=== PATIENT | female | born 1960 | race African-American/Black ===

== ENCOUNTER 2017-01-13 15:07 | Observation (INO) | payer BC ==
[~2017-01-13] VITALS: Ht 170.2 cm; Wt 100.0 kg
[2017-01-13 15:08] VITALS: BP 119/81; PULSE 83; RESP 17; TEMP 98.4; O2SAT 99
--- NOTE | 2017-01-13 15:38 | PD ---
Physical Exam Time Seen by Provider: 15:36 Narrative 56 y/o female here for evaluation of intermittent dizziness for two days, now with h/a which started today. Vital signs reviewed. Seen at triage desk. Awaiting bed placement. Data Data Last Documented VS Vital Signs Date Time Temp Pulse Resp B/P Pulse Ox O2 Delivery O2 Flow Rate FiO2 01/13/17 15:08 98.4 83 17 119/81 99 MDM Medical Record Reviewed: Yes Supervised Visit with KIKI: Henry Sandoval Jan 13, 2017 15:38
[2017-01-13 20:24] VITALS: BP 156/79; PULSE 73; RESP 16; O2SAT 99
--- NOTE | 2017-01-13 21:07 | PD ---
HPI Chief Complaint: Dizziness Time Seen by Provider: 21:07 Travel History International Travel<30 days: No Contact w/Intl Traveler<30days: No Traveled to known affect area: No History of Present Illness HPI 56-year-old female with history of TIA in the past, migraine, DVT and PE, on Eliquis presents to the emergency department for evaluation of an episodes of dizziness that began intermittently occurring over the last 2 days.. Patient states happened earlier in the month and she "ignored it." She states that this morning it happened again and last approximately 10 minutes. This is a sensation where she feels as though she is going to pass out. She states she sat down and the feeling eventually subsided. She did develop a headache following this and noticed left upper extremity weakness. 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 She continued on with her day and then when her headache got intolerable, she decided to come to the emergency department for further evaluation. Denies any chest pain or tightness. No difficulty breathing. No other focal deficit or weakness. She has no other symptoms to report at this time. PFSH Past Medical History Hx Anticoagulant Therapy: Yes (ELIQUIS) Social History Tobacco Use: No Allergies-Medications (Allergen,Severity, Reaction): Coded Allergies: Nonsteroidal Anti-Inflammatory Agts (Verified Allergy, Unknown, GI BLEEDING, 01/13/17) Nubain (Verified Allergy, Unknown, Swelling, 01/13/17) Robinul (Verified Allergy, Unknown, 01/13/17) Toradol (Verified Allergy, Unknown, 01/13/17) Voltaren (Verified Allergy, Unknown, NV, 01/13/17) Reported Meds & Prescriptions Reported Meds & Active Scripts Active Reported Percocet (Oxycodone-Acetaminophen) 5-325 mg Tab 1-2 Tab PO Q6H PRN Eliquis (Apixaban) 5 Mg Tab 5 Mg PO HS Review of Systems Except as stated in HPI: all other systems reviewed are Neg Physical Exam Narrative GENERAL: Well-nourished female patient, in no acute distress SKIN: Focused skin assessment warm/dry. HEAD: Atraumatic. Normocephalic. EYES: Pupils equal and round. No scleral icterus. No injection or drainage. ENT: No nasal bleeding or discharge. Mucous membranes pink and moist. NECK: Trachea midline. No JVD. CARDIOVASCULAR: Regular rate and rhythm. No murmur appreciated. RESPIRATORY: No accessory muscle use. Clear to auscultation. Breath sounds equal bilaterally. GASTROINTESTINAL: Abdomen soft, non-tender, nondistended. Hepatic and splenic margins not palpable. MUSCULOSKELETAL: No obvious deformities. No clubbing. No cyanosis. No edema. NEUROLOGICAL: Awake and alert. No obvious cranial nerve deficits. There is a noted strength deficit in the left upper and lower extremity when compared to the right. Normal speech. PSYCHIATRIC: Appropriate mood and affect; insight and judgment normal. Data Data Last Documented VS Vital Signs Date Time Temp Pulse Resp B/P Pulse Ox O2 Delivery O2 Flow Rate FiO2 01/13/17 21:41 63 17 100 Room Air 01/13/17 20:24 156/79 01/13/17 15:08 98.4 Orders Electrocardiogram (01/13/17 21:07) Prothrombin Time / Inr (Pt) (01/13/17 21:07) Act Partial Throm Time (Ptt) (01/13/17 21:07) Complete Blood Count With Diff (01/13/17 21:07) Comprehensive Metabolic Panel (01/13/17 21:07) Creatine Kinase (Cpk) (01/13/17 21:07) Troponin I (01/13/17 21:07) Urinalysis - C+S If Indicated (01/13/17 21:07) Ct Brain W/O Iv Contrast(Rout) (01/13/17 21:07) Chest, Single Ap (01/13/17 21:07) Ecg Monitoring (01/13/17 21:07) Iv Access Insert/Monitor (01/13/17 21:07) Oximetry (01/13/17 21:07) Sodium Chloride 0.9% Flush (Ns Flush) (01/13/17 21:15) Cta Brain W Iv Contrast W 3d (01/13/17 21:07) Cta Neck W Iv Contrast W 3d (01/13/17 21:07) Labs Laboratory Tests Test 01/13/17 19:00 Urine Color YELLOW Urine Turbidity CLEAR Urine pH 6.0 Urine Specific [place] 1.023 Urine Protein TRACE mg/dL Urine Glucose (UA) NEG mg/dL Urine Ketones NEG mg/dL Urine Occult Blood NEG Urine Nitrite NEG Urine Bilirubin NEG Urine Urobilinogen LESS THAN 2.0 MG/DL Urine Leukocyte Esterase SMALL Urine RBC LESS THAN 1 /hpf Urine WBC 6 /hpf Urine Squamous Epithelial 3 /hpf Cells Urine Hyaline Casts 1 /lpf Urine Mucus FEW /lpf Microscopic Urinalysis Comment CATH-CULT NOT IND MDM Medical Decision Making Medical Screen Exam Complete: Yes Emergency Medical Condition: Yes Medical Record Reviewed: Yes Differential Diagnosis TIA versus CVA versus elect without abnormality versus hypoglycemia versus migraine headache versus syncope versus near syncope Narrative Course 56-year-old female presents to the emergency department for evaluation of episodes of dizziness, headache, and left upper extremity weakness. This all began this morning, several hours ago. Patient does have noted left upper and lower extremity weakness on physical examination however she is well out of the window for any stroke intervention. CVA workup is initiated. [id number] I am informed by nursing staff lab work has not yet been collected due to inability to gain IV access. 230 I discussed the patient with my attending physician Dr. William. He will assume care at this time. Condition: Stable Anya Hadley Jan 13, 2017 21:07
[2017-01-13] MEDS ORDERED: SODIUM CHLORIDE 0.9% FLUSH 10 ML FLUSH IVF PRN (21:15)
[2017-01-13] MEDS ORDERED: PERC5TAB12 PO (21:28)
[2017-01-13] MEDS ORDERED: APIX5TAB PO (21:28)
--- NOTE | 2017-01-13 21:29 | RADRPT ---
EXAM DATE/TIME: 01/13/2017 21:17 [facility] COMPARISON: No previous studies available for comparison. INDICATIONS : Headache, dizziness MEDICAL HISTORY : Cardiovascular disease. SURGICAL HISTORY : None. ENCOUNTER: Initial ACUITY: 4 - 6 days PAIN SCORE: 0/10 LOCATION: chest FINDINGS: A single view of the chest demonstrates the lungs to be symmetrically aerated without evidence of mas s, infiltrate or effusion. The cardiomediastinal contours are unremarkable. Osseous structures are intact. CONCLUSION: No evidence of acute cardiopulmonary disease. Jeromy Hankins MD on January 13, 2017 at 21:27 Board Certified Radiologist. This report was verified electronically.
[2017-01-13 22:37] LABS: BLOOD, URINE NEG (NEG); GLUCOSE,URINE NEG (NEG); HYALINE CAST, URINE 1 /lpf (RARE); KETONE, URINE NEG (NEG); MUCUS URINE FEW /lpf (OCC); NITRITE,URINE NEG (NEG); SQUAMOUS EPITHELIAL CELL URINE 3 /hpf (0-5); URINE COLOR YELLOW (YELLW/STRAW)
[2017-01-13 22:38] LABS: COMMENT (UR) CATH-CULT NOT IND; CULTURE IF INDICATED CATH CULTURE NOT IND
[2017-01-13 22:59] LABS: AUTOMATED NEUTROPHIL # 1.8 TH/MM3 (1.8-7.7); BASOPHIL % 0.8 % (0.0-2.0); EOSINOPHIL # 0.1 TH/MM3 (0-0.4); EOSINOPHIL % 2.5 % (0.0-4.0); HEMATOCRIT 38.5 % (35.0-46.0); HEMO FLAGS DIFF FINAL; LYMPH % 44.8 % (9.0-44.0); LYMPHOCYTE # 1.7 TH/MM3 (1.0-4.8); MEAN CELL VOLUME 90.6 FL (80.0-100.0); MEAN CORPUSCULAR HEMOGLOBIN 30.2 PG (27.0-34.0); MEAN CORPUSCULAR HGB CONC 33.4 % (32.0-36.0); MONO % 6.5 % (0.0-8.0); NEUT % 45.4 % (16.0-70.0); PLATELET COUNT 293 TH/MM3 (150-450); RED BLOOD COUNT 4.25 MIL/MM3 (4.00-5.30); RED CELL DISTRIBUTION WIDTH 15.5 % (11.6-17.2); WHITE BLOOD COUNT 3.9 TH/MM3 (4.0-11.0)
[2017-01-13] MEDS ORDERED: MORPHINE SULFATE 4 MG/ML INJ IV PUSH ONE (23:00)
[2017-01-13 23:10] LABS: APTT (PATIENT) 25.2 SEC (24.3-30.1); PROTHROMBIN TIME - PATIENT 10.7 SEC (9.8-11.6)
[2017-01-13 23:13] VITALS: BP 160/80; PULSE 81; RESP 18; O2SAT 99
[2017-01-13] MEDS ORDERED: diphenhydrAMINE HCL 50 MG/ML VIAL IV PUSH ONE (23:15)
[2017-01-13 23:20] LABS: ANION GAP 6 MEQ/L (5-15); BICARBONATE 26.7 MEQ/L (21.0-32.0); BLOOD UREA NITROGEN 9 MG/DL (7-18); CHLORIDE 108 MEQ/L (98-107); POTASSIUM 3.4 MEQ/L (3.5-5.1); SODIUM (NA) 141 MEQ/L (136-145)
[2017-01-13 23:25] LABS: ALKALINE PHOSPHATASE 105 U/L (45-117); ALT (GPT) 23 U/L (10-53); AST (GOT) 16 U/L (15-37); GLOMERULAR FILTRATION RATE 90 ML/MIN (>89); TOTAL BILIRUBIN ADULT 0.7 MG/DL (0.2-1.0)
[2017-01-13 23:39] LABS: CREATINE KINASE 86 U/L (26-192)
[2017-01-14] VITALS (8 sets, daily range): BP systolic 108–167; BP diastolic 58–95; PULSE 70–83; RESP 16–18; TEMP 97.3–97.9; O2SAT 95–100
[2017-01-14] MEDS ORDERED: IOHEXOL 350 MG/ML 10 ML VIAL (for RAD DIAG) IV ONE (00:25)
--- NOTE | 2017-01-14 00:34 | RADRPT ---
EXAM DATE/TIME: 01/14/2017 00:20 [facility] COMPARISON: No previous studies available for comparison. INDICATIONS : Cephalgia with dizziness. RADIATION DOSE: 39.73 CTDIvol (mGy) MEDICAL HISTORY : Pancreatitis. Diverticulitis. CVA. Colitis. SURGICAL HISTORY : Appendectomy. Cholecystectomy.Tonsillectomy.Mandible surgery. ENCOUNTER: Initial ACUITY: 2 days PAIN SCALE: 10/10 LOCATION: cranial TECHNIQUE: Multiple contiguous axial images were obtained of the head. Using automated exposure control and adj ustment of the mA and/or kV according to patient size, radiation dose was kept as low as reasonably a chievable to obtain optimal diagnostic quality images. FINDINGS: CEREBRUM: The ventricles are normal for age. No evidence of midline shift, mass lesion, hemorrhage or acute in farction. No extra-axial fluid collections are seen. POSTERIOR FOSSA: The cerebellum and brainstem are intact. The 4th ventricle is midline. The cerebellopontine angle i s unremarkable. EXTRACRANIAL: The visualized portion of the orbits is intact. SKULL: The calvaria is intact. No evidence of skull fracture. Left TMJ arthroplasty CONCLUSION: Normal examination. Bryan Mccauley MD on January 14, 2017 at 0:32 Board Certified Radiologist. This report was verified electronically.
--- NOTE | 2017-01-14 01:20 | RADRPT ---
EXAM DATE/TIME: 01/14/2017 00:20 [facility] COMPARISON: No previous studies available for comparison. INDICATIONS : Cephalgia with dizziness. IV CONTRAST: 100 cc Omnipaque 350 (iohexol) IV ; Cumulative dose for multiple exams. RADIATION DOSE: 28.10 CTDIvol (mGy) ; Combined studies MEDICAL HISTORY : Diverticulitis. Pancreatitis. CVA. Colitis. SURGICAL HISTORY : Appendectomy. Cholecystectomy.Tonsillectomy.Mandible surgery. ENCOUNTER: Initial ACUITY: 2 days PAIN SCALE: 10/10 LOCATION: cranial TECHNIQUE: Volumetric scanning was performed using a multi-row detector CT scanner. The data was post processed with a variety of visualization algorithms including full volume maximum intensity projection, multi -planar sliding thin slab reformation, curved planar reformation, and surface rendering techniques. Using automated exposure control and adjustment of the mA and/or kV according to patient size, radiat ion dose was kept as low as reasonably achievable to obtain optimal diagnostic quality images. FINDINGS: There is excellent visualization of the major intracranial arteries out to the second-order branch ve ssels. There is no evidence for aneurysm, vessel truncation or stenosis, and no evidence for vascula r malformation. CONCLUSION: Normal examination. Bryan Mccauley MD on January 14, 2017 at 1:17 Board Certified Radiologist. This report was verified electronically.
--- NOTE | 2017-01-14 01:22 | RADRPT ---
EXAM DATE/TIME: 01/14/2017 00:20 [facility] COMPARISON: No previous studies available for comparison. INDICATIONS : Cephalgia with dizziness. IV CONTRAST: 100 cc Omnipaque 350 (iohexol) IV ; Cumulative dose for multiple exams. RADIATION DOSE: 28.10 CTDIvol (mGy) ; Combined studies MEDICAL HISTORY : Pancreatitis. Diverticulitis. CVA. Colitis. SURGICAL HISTORY : Appendectomy. Cholecystectomy.Tonsillectomy.Mandible surgery. ENCOUNTER: Initial ACUITY: 2 days PAIN SCALE: 0/10 LOCATION: neck Elevated flow velocities and ICA/CCA ratios have been found to correlate with increased degrees of vessel stenosis, calculated as percentage of diameter relative to a normal segment of distal ICA/CCA. TECHNIQUE: Volumetric scanning was performed using a multirow detector CT scanner. The data was post processed with a variety of visualization algorithms including full-volume maximum intensity projection, multip lanar sliding thin-slab reformation, curved-planar reformation, and surface-rendering techniques. Us ing automated exposure control and adjustment of the mA and/or kV according to patient size, radiatio n dose was kept as low as reasonably achievable to obtain optimal diagnostic quality images. FINDINGS: AORTIC ARCH: There is a three-vessel origin of the great vessels from the aorta. No evidence of ostial narrowing. RIGHT CAROTID: The common carotid artery is intact. The carotid bulb has a normal configuration without ulceration o r narrowing. The internal carotid artery lumen is smooth without stenosis. The external carotid margot ry is intact. LEFT CAROTID: The common carotid artery is intact. The carotid bulb has a normal configuration without ulceration or narrowing. The internal carotid artery lumen is smooth without stenosis. The external carotid ar sherry is intact. VERTEBRALS: The vertebral arteries have a symmetric diameter. No stenotic lesions are seen. CONCLUSION: Normal examination. Bryan Mccauley MD on January 14, 2017 at 1:21 Board Certified Radiologist. This report was verified electronically.
[2017-01-14] MEDS ORDERED: METOCLOPRAMIDE HCL 10 MG/2 ML VIAL IV PUSH ONE (01:30)
[2017-01-14] MEDS ORDERED: MORPHINE SULFATE 4 MG/ML INJ IV PUSH ONE (01:30)
--- NOTE | 2017-01-14 01:38 | PD ---
Data Data Last Documented VS Vital Signs Date Time Temp Pulse Resp B/P Pulse Ox O2 Delivery O2 Flow Rate FiO2 01/13/17 23:13 81 18 160/80 99 Room Air 01/13/17 15:08 98.4 Orders Electrocardiogram (01/13/17 21:07) Prothrombin Time / Inr (Pt) (01/13/17 21:07) Act Partial Throm Time (Ptt) (01/13/17 21:07) Complete Blood Count With Diff (01/13/17 21:07) Comprehensive Metabolic Panel (01/13/17 21:07) Creatine Kinase (Cpk) (01/13/17 21:07) Troponin I (01/13/17 21:07) Urinalysis - C+S If Indicated (01/13/17 21:07) Ct Brain W/O Iv Contrast(Rout) (01/13/17 21:07) Chest, Single Ap (01/13/17 21:07) Ecg Monitoring (01/13/17 21:07) Iv Access Insert/Monitor (01/13/17 21:07) Oximetry (01/13/17 21:07) Sodium Chloride 0.9% Flush (Ns Flush) (01/13/17 21:15) Morphine Inj (Morphine Inj) (01/13/17 23:00) Diphenhydramine Inj (Benadryl Inj) (01/13/17 23:15) Cta Brain W Iv Contrast W 3d (01/14/17 ) Cta Neck W Iv Contrast W 3d (01/14/17 ) Iohexol 350 Inj (Omnipaque 350 Inj) (01/14/17 00:25) Metoclopramide Inj (Reglan Inj) (01/14/17 01:30) Morphine Inj (Morphine Inj) (01/14/17 01:30) Labs Laboratory Tests Test 01/13/17 01/13/17 19:00 22:50 Urine Color YELLOW Urine Turbidity CLEAR Urine pH 6.0 Urine Specific [place] 1.023 Urine Protein TRACE mg/dL Urine Glucose (UA) NEG mg/dL Urine Ketones NEG mg/dL Urine Occult Blood NEG Urine Nitrite NEG Urine Bilirubin NEG Urine Urobilinogen LESS THAN 2.0 MG/DL Urine Leukocyte Esterase SMALL Urine RBC LESS THAN 1 /hpf Urine WBC 6 /hpf Urine Squamous Epithelial 3 /hpf Cells Urine Hyaline Casts 1 /lpf Urine Mucus FEW /lpf Microscopic Urinalysis Comment CATH-CULT NOT IND White Blood Count 3.9 TH/MM3 Red Blood Count 4.25 MIL/MM3 Hemoglobin 12.9 GM/DL Hematocrit 38.5 % Mean Corpuscular Volume 90.6 FL Mean Corpuscular Hemoglobin 30.2 PG Mean Corpuscular Hemoglobin 33.4 % Concent Red Cell Distribution Width 15.5 % Platelet Count 293 TH/MM3 Mean Platelet Volume 8.2 FL Neutrophils (%) (Auto) 45.4 % Lymphocytes (%) (Auto) 44.8 % Monocytes (%) (Auto) 6.5 % Eosinophils (%) (Auto) 2.5 % Basophils (%) (Auto) 0.8 % Neutrophils # (Auto) 1.8 TH/MM3 Lymphocytes # (Auto) 1.7 TH/MM3 Monocytes # (Auto) 0.3 TH/MM3 Eosinophils # (Auto) 0.1 TH/MM3 Basophils # (Auto) 0.0 TH/MM3 CBC Comment DIFF FINAL Differential Comment Prothrombin Time 10.7 SEC Prothromb Time International 1.0 RATIO Ratio Activated Partial 25.2 SEC Thromboplast Time Sodium Level 141 MEQ/L Potassium Level 3.4 MEQ/L Chloride Level 108 MEQ/L Carbon Dioxide Level 26.7 MEQ/L Anion Gap 6 MEQ/L Blood Urea Nitrogen 9 MG/DL Creatinine 0.80 MG/DL Estimat Glomerular Filtration 90 ML/MIN Rate Random Glucose 86 MG/DL Calcium Level 8.9 MG/DL Total Bilirubin 0.7 MG/DL Aspartate Amino Transf 16 U/L (AST/SGOT) Alanine Aminotransferase 23 U/L (ALT/SGPT) Alkaline Phosphatase 105 U/L Total Creatine Kinase 86 U/L Troponin I LESS THAN 0.02 NG/ML Total Protein 8.0 GM/DL Albumin 3.8 GM/DL [facility] Supervised Visit with KIKI: Yes Narrative Course I, Dr. Willima, have reviewed the advance practice practitioner's documentation and am in agreement, met with the patient face to face, made the diagnosis, and the medical decision making was done by me. See her note for further details. Briefly this a 56-year-old female with history of TIAs, migraines, DVT/PE on Eliquis, here for evaluation of headache, dizziness, and left sided weakness. Symptoms started 2 days ago with dizziness/lightheadedness and continued to today. Earlier this morning the patient noticed tingling and weakness in her left arm and left leg. 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 Normal strength on the right. EKG shows sinus bradycardia with no signs of ischemia. Initial vital signs show heart rate 83, blood pressure 119/81, pulse ox 99% on room air, oral temp of 98.4F. CBC is essentially unremarkable. CMP is unremarkable. Cardiac enzymes are negative. UA is not suggestive of UTI. CT head read as normal exam. Chest x-ray read as no evidence of acute cardio pulmonary disease. CTA brain read as normal exam. CTA neck read as normal exam. Patient was made aware of all findings. She is still complaining of headache, however it has somewhat improved after receiving morphine. She has history of migraines and has had similar headaches in the past. This is not the worst headache of her life. She is overall comfortable and no nuchal rigidity on exam. I do not believe she has a subarachnoid hemorrhage/meningitis or encephalitis. CTA of the head was performed to look for possible aneurysm. Patient still has weakness in her left arm and left leg when compared to the right. She has history of TIAs as well as SVC syndrome, DVT, and PE. She is on eliquis. She will be admitted for further CVA workup. Case discussed with hospitalist Dr. Kelly who will admit the patient to his service. Diagnosis Primary Impression: Left-sided weakness Additional Impression: Headache Qualified Code: R51 - Intractable headache, unspecified chronicity pattern, unspecified headache type Condition: Stable Evaristo William MD Jan 14, 2017 01:38 Evaristo William MD Jan 14, 2017 01:38
[2017-01-14] MEDS ORDERED: ONDANSETRON HCL 4 MG/2 ML VIAL IVP PRN (03:00)
[2017-01-14] MEDS ORDERED: ACETAMINOPHEN 325 MG TAB PO PRN ×2 (03:00)
[2017-01-14] MEDS ORDERED: NALOXONE HCL 0.4 MG/ML AMP IV PRN (03:00)
[2017-01-14] MEDS ORDERED: MAGNESIUM HYDROXIDE SUSP 30 ML CUP PO PRN (03:00)
[2017-01-14] MEDS ORDERED: SODIUM CHLORIDE 0.9% FLUSH 10 ML FLUSH IV FLUSH PRN (03:00)
[2017-01-14] MEDS ORDERED: diphenhydrAMINE HCL 50 MG/ML VIAL IM PRN (05:45)
[2017-01-14] MEDS ORDERED: HEPARIN SODIUM - SQ 10,000 UNITS/ML VIAL SQ SCH ×2 (06:00→06:30)
[2017-01-14] MEDS ORDERED: LABETALOL HCL 100 MG/20 ML VIAL IV PRN (06:30)
[2017-01-14] MEDS ORDERED: POTASSIUM CHLORIDE 20 MEQ CONTROLLED RELEASE TAB PO ONE ×2 (06:30→09:30)
[2017-01-14] MEDS ORDERED: ENALAPRILAT 1.25 MG/ML VIAL IV PRN (06:30)
[2017-01-14] MEDS ORDERED: DEXTROSE 50% IN WATER 50 ML VIAL(D50) IV PUSH PRN (06:45)
[2017-01-14] MEDS ORDERED: GLUCAGON 1 MG/ML VIAL OTHER PRN (06:45)
[2017-01-14] MEDS: SODIUM CHLOR 0.9% 1000 ML INJ 1,000 ML IV SCH (06:46)
[2017-01-14] MEDS: MORPHINE SULFATE 4 MG/ML INJ IV PUSH PRN ×3 (06:55→18:36)
[2017-01-14] MEDS: INSULIN ASPART SUPPLEMENTAL SCALE SQ SCH ×4 (06:57→20:38)
--- NOTE | 2017-01-14 08:40 | HHI.HP ---
[facility] Primary Care Physician No Primary Care Physician Admission Diagnosis left-sided weakness, headache Diagnoses: Chief Complaint: left sided weakness, dizziness and headaches Travel History International Travel<30 Days: No Contact w/Intl Traveler <30 Da: No Traveled to Known Affected Are: No History of Present Illness Written by BRIDGET Deshpande acting as scribe for Dr. Millan] on 01/14/17 at 08: 50. 56 y/o female with a history of TIA, CAD, migraines, DVT, and PE presents to the ED with complaints of dizziness, left sided weakness, and headaches. She states symptoms began Friday; she was standing in kitchen felt very dizzy and she felt like she was going to pass out so she went and laid down. Friday she continued to have intermittent symptoms, and then on Friday she started to have left sided weakness. She also gets associated headaches with the dizziness. She denies any numbness to left side, states it just feels dull on the whole side with decreased sensation. Denies any chest pain, sob, fever or chills. Review of Systems Constitutional: COMPLAINS OF: Dizziness, DENIES: Fever, Chills Respiratory: DENIES: Cough, Sputum production, Shortness of breath Cardiovascular: DENIES: Chest pain, Lower Extremity Edema Gastrointestinal: DENIES: Constipation, Diarrhea, Nausea, Vomiting Genitourinary: DENIES: Hematuria, Dysuria Musculoskeletal: DENIES: Back pain, Neck pain Integumentary: DENIES: Rash Hematologic/lymphatic: DENIES: Lymphadenopathy Neurologic: COMPLAINS OF: Headache, Localized weakness Past Family Social History Past Medical History TIA Migraines DVT PE Severe vena cava syndrome Kidney stones Diverticulitis Past Surgical History TMJ joint replacement venoplasty I&D shoulder wound Hernia repair Lithotripsy Left knee replacement Back surgery Cholecystectomy Reported Medications Reported Meds & Active Scripts Active Reported Percocet (Oxycodone-Acetaminophen) 5-325 mg Tab 1-2 Tab PO Q6H PRN Eliquis (Apixaban) 5 Mg Tab 5 Mg PO HS Allergies: Coded Allergies: Nonsteroidal Anti-Inflammatory Agts (Verified Allergy, Unknown, GI BLEEDING, 01/13/17) Nubain (Verified Allergy, Unknown, Swelling, 01/13/17) Robinul (Verified Allergy, Unknown, 01/13/17) Toradol (Verified Allergy, Unknown, 01/13/17) Voltaren (Verified Allergy, Unknown, NV, 01/13/17) Active Ordered Medications Current Medications Medications (Trade) Dose Ordered Sig/Coy Route Start Time Stop Time Status Last Admin (NS Flush) 2 ml UNSCH PRN IV FLUSH 01/14/17 03:00 (NS Flush) 2 ml BID IV FLUSH 01/14/17 09:00 (Tylenol) 650 mg Q4H PRN PO 01/14/17 03:00 (Zofran Inj) 4 mg Q6H PRN IVP 01/14/17 03:00 (Tylenol) 650 mg Q6H PRN PO 01/14/17 03:00 (Narcan Inj) 0.4 mg UNSCH PRN IV 01/14/17 03:00 (Marlene-Colace) 1 tab BID PO 01/14/17 09:00 (Milk Of Magnesia Liq) 30 ml Q12H PRN PO 01/14/17 03:00 (Morphine Inj) 4 mg Q4H PRN IV PUSH 01/14/17 05:45 01/14/17 06:55 (Morphine Inj) 2 mg Q4H PRN IV PUSH 01/14/17 05:45 Diphenhydramine HCl 25 mg 25 mg Q6H PRN IM 01/14/17 05:45 01/14/17 17:46 01/14/17 06:54 (NS 1000 ml Inj) 1,000 ml @ 70 mls/hr [id number] IV 01/14/17 06:21 01/14/17 06:46 (Vasotec Inj) 1.25 mg Q4H PRN IV 01/14/17 06:30 (Trandate Inj) 10 mg Q2H PRN IV 01/14/17 06:30 (Aspirin Chew) 162 mg DAILY PO 01/14/17 09:00 (NovoLOG SUPPLEMENTAL SCALE) 1 ACHS SQ 01/14/17 07:00 (Eliquis) 5 mg BID PO 01/14/17 09:00 (D50w (Vial) Inj) 25 ml UNSCH PRN IV PUSH 01/14/17 06:45 (Glucagon Inj) 1 mg UNSCH PRN OTHER 01/14/17 06:45 Family History Dad: COPD Mom: HTN, MS Social History Tobacco use: denies Alcohol use: occasionally Illicit drug use: denies Physical Exam Vital Signs Vital Signs Date Time Temp Pulse Resp B/P Pulse Ox O2 Delivery O2 Flow Rate FiO2 01/14/17 07:59 97.9 70 18 123/61 98 01/14/17 05:07 83 19 115/68 100 01/14/17 02:02 74 16 167/95 98 Room Air 01/13/17 23:13 81 18 160/80 99 Room Air 01/13/17 21:41 63 17 100 Room Air 01/13/17 20:24 73 16 156/79 99 Room Air 01/13/17 15:08 98.4 83 17 119/81 99 Physical Exam GENERAL: This is a well-nourished, well-developed patient, in no apparent distress. SKIN: No rashes, ecchymoses or lesions. Cool and dry. HEAD: Atraumatic. Normocephalic. No temporal or scalp tenderness. EYES: Pupils equal round and reactive. Extraocular motions intact. No scleral icterus. No injection or drainage. ENT: Nose without bleeding, purulent drainage or septal hematoma. Tongue midline. Airway patent. NECK: Trachea midline. No JVD or lymphadenopathy. Supple, nontender, no meningeal signs. CARDIOVASCULAR: Regular rate and rhythm without murmurs, gallops, or rubs. RESPIRATORY: Clear to auscultation. Breath sounds equal bilaterally. No wheezes , rales, or rhonchi. GASTROINTESTINAL: Abdomen soft, non-tender, nondistended. No hepato-splenomegaly , or palpable masses. No guarding. MUSCULOSKELETAL: Extremities without clubbing, cyanosis, or edema. No joint tenderness, effusion, or edema noted. No calf tenderness. NEUROLOGICAL: Awake and alert. Cranial nerves II through XII intact. Motor and sensory grossly within normal limits. 4 out of 5 muscle strength in LUE and LLE. Decreased sensation on left side. Normal speech. Laboratory Laboratory Tests Test 01/13/17 01/13/17 19:00 22:50 Urine Color YELLOW Urine Turbidity CLEAR Urine pH 6.0 Urine Specific [place] 1.023 Urine Protein TRACE Urine Glucose (UA) NEG Urine Ketones NEG Urine Occult Blood NEG Urine Nitrite NEG Urine Bilirubin NEG Urine Urobilinogen LESS THAN 2.0 Urine Leukocyte Esterase SMALL Urine RBC LESS THAN 1 Urine WBC 6 Urine Squamous Epithelial 3 Cells Urine Hyaline Casts 1 Urine Mucus FEW Microscopic Urinalysis Comment CATH-CULT NOT IND White Blood Count 3.9 Red Blood Count 4.25 Hemoglobin 12.9 Hematocrit 38.5 Mean Corpuscular Volume 90.6 Mean Corpuscular Hemoglobin 30.2 Mean Corpuscular Hemoglobin 33.4 Concent Red Cell Distribution Width 15.5 Platelet Count 293 Mean Platelet Volume 8.2 Neutrophils (%) (Auto) 45.4 Lymphocytes (%) (Auto) 44.8 Monocytes (%) (Auto) 6.5 Eosinophils (%) (Auto) 2.5 Basophils (%) (Auto) 0.8 Neutrophils # (Auto) 1.8 Lymphocytes # (Auto) 1.7 Monocytes # (Auto) 0.3 Eosinophils # (Auto) 0.1 Basophils # (Auto) 0.0 CBC Comment DIFF FINAL Differential Comment Prothrombin Time 10.7 Prothromb Time International 1.0 Ratio Activated Partial 25.2 Thromboplast Time Sodium Level 141 Potassium Level 3.4 Chloride Level 108 Carbon Dioxide Level 26.7 Anion Gap 6 Blood Urea Nitrogen 9 Creatinine 0.80 Estimat Glomerular Filtration 90 Rate Random Glucose 86 Calcium Level 8.9 Total Bilirubin 0.7 Aspartate Amino Transf 16 (AST/SGOT) Alanine Aminotransferase 23 (ALT/SGPT) Alkaline Phosphatase 105 Total Creatine Kinase 86 Troponin I LESS THAN 0.02 Total Protein 8.0 Albumin 3.8 Result Diagram: 01/13/17224901/13/17 225 Imaging Last Impressions Neck CTA 01/14/17 0000 Signed Impressions: Service Date/Time: Saturday, January 14, 2017 00:20 - CONCLUSION: Normal examination. Bryan Mccauley MD Head CTA 01/14/17 0000 Signed Impressions: Service Date/Time: Saturday, January 14, 2017 00:20 - CONCLUSION: Normal examination. Bryan Mccauley MD Head CT 01/13/172106 Signed Impressions: Service Date/Time: Saturday, January 14, 2017 00:20 - CONCLUSION: Normal examination. Bryan Mccauley MD Chest X-Ray 6/5/17 2107 Signed Impressions: Service Date/Time: Friday, January 13, 2017 21:17 - CONCLUSION: No evidence of acute cardiopulmonary disease. Jeromy Hankins MD Assessment and Plan Problem List: (1) TIA (transient ischemic attack) ICD Code: G45.9 Status: Acute (2) Left-sided weakness ICD Code: R53.1 Status: Acute (3) Headache ICD Code: R51 Status: Acute Assessment and Plan 56 y/o female with a history of TIA, CAD, migraines, DVT, and PE presents to the ED with complaints of dizziness, left sided weakness, and headaches. TIA, r/o cva, Left sided weakness, pt with a history of TIA, on eliquis for the last year due to PE Images: Head CT, head CTA and neck CTA unremarkable -Brain MRI ordered -Consult neuro for recommendations -Neuro checks, NIH scale -PT/OT/ST -Echo/Holter monitor pending -Allow for permissive HTN Hypokalemia, potassium 3.4 -replacement given, trend bmp CAD, hx of PE -Hold eliquis for now, r/o cva DVT prophylaxis: SCDs This note was transcribed by scribe [Sabine Balbuena]. I, Dr. Franck Ny personally performed the history, physical exam, and medical decision making; and confirmed the accuracy of the information in the transcribed note. Authenticated by Dr. Franck Ny on 01/14/17 at 13:54. Discussed Condition With Patient and RN Problem Qualifiers (1) Headache: Qualified Code: R51 - Intractable headache, unspecified chronicity pattern, unspecified headache type Sabine Balbuena Jan 14, 2017 08:39 Franck Ny MD Jan 14, 2017 13:54
[2017-01-14] MEDS: DOCUSATE SODIUM 50 MG/SENNA 8.6 MG TAB PO SCH ×2 (09:13→20:37)
[2017-01-14] MEDS: SODIUM CHLORIDE 0.9% FLUSH 10 ML FLUSH IV FLUSH SCH ×2 (09:13→20:00)
[2017-01-14] MEDS: ASPIRIN 81 MG CHEW TAB PO SCH (09:13)
[2017-01-14 09:15] LABS: PROTHROMBIN TIME - PATIENT 10.7 SEC (9.8-11.6)
[2017-01-14] MEDS ORDERED: LORazepam 2 MG/ML VIAL IV PUSH ONE (09:15)
[2017-01-14 09:46] LABS: CREATINE KINASE 98 U/L (26-192)
--- NOTE | 2017-01-14 11:55 | RADRPT ---
EXAM DATE/TIME: 01/14/2017 11:18 [facility] COMPARISON: No previous studies available for comparison. INDICATIONS : Left sided weakness. Vertigo. CVA. MEDICAL HISTORY : Cerebrovascular disease. Diverticulitis. Pancreatitis. SURGICAL HISTORY : Tonsillectomy. Appendectomy. Hysterectomy. TMJ. Hernia. Left knee replacement. ENCOUNTER: Subsequent ACUITY: 2 day PAIN SCORE: 0/10 LOCATION: head. TECHNIQUE: Multiplanar, multisequence MRI of the brain was performed without contrast. FINDINGS: CEREBRUM: The ventricles are normal for age. No evidence of midline shift, mass lesion, hemorrhage or acute in farction. No extraaxial fluid collections are seen. The pituitary gland and suprasellar cistern are normal in configuration. WHITE MATTER: No significant signal abnormalities are seen in the white matter. POSTERIOR FOSSA: The cerebellum and brainstem are intact. The 4th ventricle is midline. The cerebellopontine angle is unremarkable. The cerebellar tonsils are normal in position. DIFFUSION IMAGING: No focal areas of restricted diffusion are seen. No evidence of acute infarction. EXTRACRANIAL: The visualized portions of the orbits and paranasal sinuses are unremarkable. CONCLUSION: 1. Negative examination. Franck Mccracken MD on January 14, 2017 at 11:51 Board Certified Radiologist. This report was verified electronically.
[2017-01-14 12:24] LABS: CREATINE KINASE 84 U/L (26-192)
[2017-01-14] MEDS: diphenhydrAMINE HCL 50 MG/ML VIAL IV PRN ×2 (12:41→18:36)
--- NOTE | 2017-01-14 16:07 | PD.CONS ---
History of Present Illness Service Neurology Consult Requested By er Reason for Consult stroke Primary Care Physician No Primary Care Physician History of Present Illness 56 y/o f with history of TIA in the past, migraine, DVT and PE, on Eliquis presents to the emergency department for evaluation of an episodes of dizziness that began intermittently occurring over the last 2 days at school. She states she felt lightheaded as if she was going to pass out. She is studying for her masters. Denies any chest pain or tightness. No difficulty breathing. No other focal deficit or weakness. no vision loss, no vertigo, no sensory changes. no dunlap. feels well at present. she states someone in er thought she had left sided weakness and decided to admit her. mri brain nml cta brain/carotids nml [facility] Past Medical History Hx Anticoagulant Therapy: Yes (ELIQUIS) Social History Tobacco Use: No Allergies-Medications (Allergen,Severity, Reaction): Coded Allergies: Nonsteroidal Anti-Inflammatory Agts (Verified Allergy, Unknown, GI BLEEDING, 01/13/17) Nubain (Verified Allergy, Unknown, Swelling, 01/13/17) Robinul (Verified Allergy, Unknown, 01/13/17) Toradol (Verified Allergy, Unknown, 01/13/17) Voltaren (Verified Allergy, Unknown, NV, 01/13/17) Reported Meds & Prescriptions Reported Meds & Active Scripts Active Reported Percocet (Oxycodone-Acetaminophen) 5-325 mg Tab 1-2 Tab PO Q6H PRN Eliquis (Apixaban) 5 Mg Tab 5 Mg PO HS Review of Systems Except as stated in HPI: all other systems reviewed are Neg Review of Systems All other ROS: ROS reviewed as documented in chart Past Family Social History Allergies: Coded Allergies: Nonsteroidal Anti-Inflammatory Agts (Verified Allergy, Unknown, GI BLEEDING, 01/13/17) Nubain (Verified Allergy, Unknown, Swelling, 01/13/17) Robinul (Verified Allergy, Unknown, 01/13/17) Toradol (Verified Allergy, Unknown, 01/13/17) Voltaren (Verified Allergy, Unknown, NV, 01/13/17) Active Ordered Medications Current Medications Medications (Trade) Dose Ordered Sig/Coy Route Start Time Stop Time Status Last Admin (NS Flush) 2 ml UNSCH PRN IV FLUSH 01/14/17 03:00 (NS Flush) 2 ml BID IV FLUSH 01/14/17 09:00 01/14/17 09:13 (Tylenol) 650 mg Q4H PRN PO 01/14/17 03:00 (Zofran Inj) 4 mg Q6H PRN IVP 01/14/17 03:00 (Tylenol) 650 mg Q6H PRN PO 01/14/17 03:00 (Narcan Inj) 0.4 mg UNSCH PRN IV 01/14/17 03:00 (Marlene-Colace) 1 tab BID PO 01/14/17 09:00 01/14/17 09:13 (Milk Of Kali Lishankar) 30 ml Q12H PRN PO 01/14/17 03:00 (Morphine Inj) 4 mg Q4H PRN IV PUSH 01/14/17 05:45 01/14/17 12:41 Morphine Sulfate 2 mg 2 mg Q4H PRN IV PUSH 01/14/17 05:45 (NS 1000 ml Inj) 1,000 ml @ 70 mls/hr [id number] IV 01/14/17 06:21 01/14/17 06:46 (Vasotec Inj) 1.25 mg Q4H PRN IV 01/14/17 06:30 (Trandate Inj) 10 mg Q2H PRN IV 01/14/17 06:30 (Aspirin Chew) 162 mg DAILY PO 01/14/17 09:00 01/14/17 09:13 (NovoLOG SUPPLEMENTAL SCALE) 1 ACHS SQ 01/14/17 07:00 (Eliquis) 5 mg BID PO 01/14/17 09:00 Hold (D50w (Vial) Inj) 25 ml UNSCH PRN IV PUSH 01/14/17 06:45 (Glucagon Inj) 1 mg UNSCH PRN OTHER 01/14/17 06:45 (Benadryl Inj) 25 mg Q6H PRN IV 01/14/17 11:45 01/14/17 12:41 Exam I&O / VS Vital Signs Date Time Temp Pulse Resp B/P Pulse Ox O2 Delivery O2 Flow Rate FiO2 01/14/17 15:52 97.4 78 18 115/65 95 01/14/17 12:46 97.3 77 18 129/75 100 01/14/17 07:59 97.9 70 18 123/61 98 01/14/17 05:07 83 19 115/68 100 01/14/17 02:02 74 16 167/95 98 Room Air 01/13/17 23:13 81 18 160/80 99 Room Air 01/13/17 21:41 63 17 100 Room Air 01/13/17 20:24 73 16 156/79 99 Room Air General: Alert and Oriented Eye: EOMI Respiratory: Non-labored respirations Neurologic: Alert, Oriented, Normal sensory, Normal motor, No focal defects, CN II-XII intact, Normal DTR's Psychiatric: Cooperative, Appropriate mood & affect, Normal judgement, Non- suicidal Exam Comments was on her cell phone when i arrived to speak to her, no aphasia, neck supple, follows, no deficit noted Review/Management Diagnosis/Plan: (1) Dizziness Plan: presyncopal symptoms possibly 2/2 dehydration/vasovagal/complex migraine- but no dunlap recs ok to d/c home from neuro resume home meds f/u with pcp stay hydrated Mark Escoto MD Jan 14, 2017 16:06
[2017-01-14 20:58] LABS: CREATINE KINASE 69 U/L (26-192)
--- NOTE | 2017-01-14 21:21 | EKG ---
Date Performed: 01/13/2017 Time Performed: 21:37:26 PTAGE: 56 years EKG: SINUS BRADYCARDIA BORDERLINE ECG NO PREVIOUS TRACING DOCTOR: Pastor Roe Interpretating Date/Time 01/14/2017 21:15:18
[2017-01-14 22:23] LABS: HEMOGLOBIN A1a 1.2 %; HEMOGLOBIN A1b 0.9 %; HEMOGLOBIN Ao 84.3 %; HEMOGLOBIN F 1.3 %; HEMOGLOBIN P3 3.5 %
[2017-01-15] VITALS (8 sets, daily range): BP systolic 110–125; BP diastolic 64–82; PULSE 66–89; RESP 18–20; TEMP 96.9–98.6; O2SAT 96–98
[2017-01-15] MEDS: MORPHINE SULFATE 4 MG/ML INJ IV PUSH PRN ×4 (01:24→13:11)
[2017-01-15] MEDS: diphenhydrAMINE HCL 50 MG/ML VIAL IV PRN ×3 (05:53→15:31)
[2017-01-15] MEDS: INSULIN ASPART SUPPLEMENTAL SCALE SQ SCH ×2 (07:00→20:52)
--- NOTE | 2017-01-15 08:56 | HHI.PR ---
Subjective Remarks Follow up left sided weakness. 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 She complains of pain 6/1o in her left upper extremity and lower, no associated nausea. She has had venoplasty in her right upper arm and feels a tightening sensation like she had before she went for the procedure. She is concerned it may be blocked again. Denies any chest pain, sob, fever or chills. Objective Vitals Vital Signs Date Time Temp Pulse Resp B/P Pulse Ox O2 Delivery O2 Flow Rate FiO2 01/15/17 07:24 97.8 73 19 110/77 98 01/15/17 04:41 96.9 76 18 120/71 97 01/15/17 01:29 18 01/15/17 00:39 97.3 77 20 121/82 96 01/14/17 20:20 96 01/14/17 20:06 97.4 83 18 108/58 95 01/14/17 16:54 78 01/14/17 15:52 97.4 78 18 115/65 95 01/14/17 12:46 97.3 77 18 129/75 100 I/O 01/14/17 01/14/17 01/14/17 01/15/17 01/15/17 01/15/17 07:00 15:00 23:00 07:00 15:00 23:00 Intake Total 720 ml Balance 720 ml Intake Oral 720 ml # Voids 3 Result Diagram: 01/13/17224901/13/170 Objective Remarks GENERAL: This is a well-nourished, well-developed patient, in no apparent distress. SKIN: No rashes, ecchymoses or lesions. Cool and dry. HEAD: Atraumatic. Normocephalic. No temporal or scalp tenderness. NECK: Trachea midline. No JVD or lymphadenopathy. Supple, nontender, no meningeal signs. CARDIOVASCULAR: Regular rate and rhythm without murmurs, gallops, or rubs. RESPIRATORY: Clear to auscultation. Breath sounds equal bilaterally. No wheezes , rales, or rhonchi. GASTROINTESTINAL: Abdomen soft, non-tender, nondistended. No hepato-splenomegaly , or palpable masses. No guarding. MUSCULOSKELETAL: Extremities without clubbing, cyanosis, or edema. No joint tenderness, effusion, or edema noted. No calf tenderness. NEUROLOGICAL: Awake and alert. Cranial nerves II through XII intact. Motor and sensory grossly within normal limits. 4 out of 5 muscle strength in LUE and LLE. Decreased sensation on left side. Normal speech. Medications and IVs Current Medications Medications (Trade) Dose Ordered Sig/Coy Route Start Time Stop Time Status Last Admin (NS Flush) 2 ml UNSCH PRN IV FLUSH 01/14/17 03:00 (NS Flush) 2 ml BID IV FLUSH 01/14/17 09:00 01/14/17 09:13 (Tylenol) 650 mg Q4H PRN PO 01/14/17 03:00 (Zofran Inj) 4 mg Q6H PRN IVP 01/14/17 03:00 (Tylenol) 650 mg Q6H PRN PO 01/14/17 03:00 (Narcan Inj) 0.4 mg UNSCH PRN IV 01/14/17 03:00 (Marlene-Colace) 1 tab BID PO 01/14/17 09:00 01/14/17 20:37 (Milk Of Magnphilippe Liq) 30 ml Q12H PRN PO 01/14/17 03:00 Morphine Sulfate 2 mg 2 mg Q4H PRN IV PUSH 01/14/17 05:45 (NS 1000 ml Inj) 1,000 ml @ 70 mls/hr [id number] IV 01/14/17 06:21 01/14/17 06:46 (Vasotec Inj) 1.25 mg Q4H PRN IV 01/14/17 06:30 (Trandate Inj) 10 mg Q2H PRN IV 01/14/17 06:30 (Aspirin Chew) 162 mg DAILY PO 01/14/17 09:00 01/14/17 09:13 (NovoLOG SUPPLEMENTAL SCALE) 1 ACHS SQ 01/14/17 07:00 (Eliquis) 5 mg BID PO 01/14/17 09:00 Hold (D50w (Vial) Inj) 25 ml UNSCH PRN IV PUSH 01/14/17 06:45 (Glucagon Inj) 1 mg UNSCH PRN OTHER 01/14/17 06:45 (Benadryl Inj) 25 mg Q6H PRN IV 01/14/17 11:45 01/15/17 05:53 (Percocet 5-325 Mg) 1 tab Q4H PRN PO 01/15/17 08:45 UNV A/P Problem List: (1) TIA (transient ischemic attack) ICD Code: G45.9 Status: Acute (2) Left-sided weakness ICD Code: R53.1 Status: Acute (3) Headache ICD Code: R51 Status: Acute Assessment and Plan 56 y/o female with a history of TIA, CAD, migraines, DVT, and PE presents to the ED with complaints of dizziness, left sided weakness, and headaches. TIA, r/o cva, Left sided weakness, pt with a history of TIA, on eliquis for the last year due to PE Images: Head CT, head CTA and neck CTA unremarkable -Brain MRI ordered, unremarkable -Consult neuro for recommendations, Dr Escoto recommends follow up with pcp , stay hydrated and dc from neuro standpoint -Cont Neuro checks, NIH scale -PT/OT/ST, pt does not want to go to rehab, but will agree to home health -Echo pending/Holter on and recording Hypokalemia, potassium 3.4, resolved to 3.9 -replacement given, trend bmp CAD, hx of PE -resume eliquis Venoplasty, history, patient is concerned it may be blocked due to a pulling pain. -Doppler rt us ordered, unremarkable, patient made aware HLD, acute cholesterol 237, ldl 149 -Start patient on Lipitor 10 mg HS -Instructed patient on eating better, exercising and lifestyle changes. DVT prophylaxis: SCDs 18:28 hrs: Echo results returned showed normal systolic function, EF 55%, Cholesterol 237, LDL 149, will start patient on Lipitor 10mg hs and will need to follow up with pcp Discharge patient to home with C Condition on discharge: stable Heart Healthy Diet as tolerated Ad Philomena activity Rx written: Lipitor 10mg HS Follow-up with primary care physician, and neurology Patient will have HHC with PT and OT, patient did not want to go to rehab Discussed with patient the results of the echo, new medications and plan of care. Patient is stable for discharge and verbalizes understanding of follow up appointments and medications. Discharge Planning pending echo, hhc set up and doppler us Problem Qualifiers (1) Headache: Qualified Code: R51 - Intractable headache, unspecified chronicity pattern, unspecified headache type Sabine Balbuena Jan 15, 2017 08:56
--- NOTE | 2017-01-15 08:58 | HHI.FF ---
Face to Face Verification Diagnosis: (1) TIA (transient ischemic attack) (2) Headache (3) Left-sided weakness (4) Dizziness Physical Therapy Order: Evaluate and Treat, Improve ambulation, Strength and gait training Occupational Therapy Order: Evaluate and Treat, Improve ADL, Gross motor coordination, Fine motor coordination Home Health Nursing Order: Medical education Signs/symptoms of disease process Medication education-adverse effect Nursing assessment with vital signs I have seen patient Elisa Quiroga on 01/15/17. My clinical findings support the need for the requested home health care services because: Ltd mobility - disease progression Deconditioned w/ increased weakness Limited ability to care for self High risk of falls I certify that my clinical findings support that this patient is homebound because: Impaired cognitive ability/safety Unsteady gait/balance Unsafe to leave home unassisted Unable to use public transportation Sabine Balbuena Jan 15, 2017 08:58
[2017-01-15] MEDS: DOCUSATE SODIUM 50 MG/SENNA 8.6 MG TAB PO SCH ×2 (09:01→20:48)
[2017-01-15] MEDS: ASPIRIN 81 MG CHEW TAB PO SCH (09:01)
[2017-01-15] MEDS: SODIUM CHLORIDE 0.9% FLUSH 10 ML FLUSH IV FLUSH SCH ×2 (09:01→20:47)
[2017-01-15 10:30] LABS: AUTOMATED NEUTROPHIL # 1.5 TH/MM3 (1.8-7.7); BASOPHIL % 0.8 % (0.0-2.0); EOSINOPHIL # 0.1 TH/MM3 (0-0.4); EOSINOPHIL % 4.1 % (0.0-4.0); HEMATOCRIT 40.6 % (35.0-46.0); HEMO FLAGS DIFF FINAL; LYMPH % 43.7 % (9.0-44.0); LYMPHOCYTE # 1.4 TH/MM3 (1.0-4.8); MEAN CELL VOLUME 93.3 FL (80.0-100.0); MEAN CORPUSCULAR HEMOGLOBIN 29.7 PG (27.0-34.0); MEAN CORPUSCULAR HGB CONC 31.9 % (32.0-36.0); MONO % 5.5 % (0.0-8.0); NEUT % 45.9 % (16.0-70.0); PLATELET COUNT 262 TH/MM3 (150-450); RED BLOOD COUNT 4.36 MIL/MM3 (4.00-5.30); RED CELL DISTRIBUTION WIDTH 15.6 % (11.6-17.2); WHITE BLOOD COUNT 3.3 TH/MM3 (4.0-11.0)
[2017-01-15 10:44] LABS: BICARBONATE 27.1 MEQ/L (21.0-32.0); POTASSIUM 3.9 MEQ/L (3.5-5.1)
[2017-01-15 10:47] LABS: HDL CHOLESTEROL 56.9 MG/DL (40.0-60.0)
--- NOTE | 2017-01-15 12:47 | RADRPT ---
EXAM DATE/TIME: 01/15/2017 11:39 [facility] COMPARISON: No previous studies available for comparison. INDICATIONS : Right arm swelling. History of venoplasty. MEDICAL HISTORY : Diverticulitis. Pancreatitis. CVA. Colitis. Anticoagulant therapy, Eliquis. Cdiff. MRSA. SURGICAL HISTORY : Tonsillectomy. Appendectomy. Cholecystectomy. Left TMJ repair. L5-L6 cage. Partial hysterectomy. Lef t knee. ENCOUNTER: Initial ACUITY: 4 - 6 days PAIN SCORE: 2/10 LOCATION: Right arm. FINDINGS: There is spontaneous flow documented in the brachial, basilic, cephalic, axillary, and subclavian vei ns. The vessels are compressible and augmentation response is documented. No filling defects are se en. The flow is phasic with respiration. Direction of flow in the jugular vein is caudal. CONCLUSION: 1. No DVT identified. Franck Mccracken MD on January 15, 2017 at 12:45 Board Certified Radiologist. This report was verified electronically.
--- NOTE | 2017-01-15 17:25 | ECHRPT ---
Indication: Cerebral infarction due to unspecified occlusion or stenosis of unspecified vertebral arteries CONCLUSIONS Normal left ventricular size and wall thickness. The left ventricular systolic function is normal with an estimated ejection fraction of 55 %. Left ventricular diastolic function parameters are normal. Mild thickening of the aortic valve .Trivial pulmonary valve regurgitation. BP: 123 / 61 HR: 70 Rhythm: Sinus MEASUREMENTS (Male / Female) Normal Values Technical Quality: Technically difficult study 2D ECHO LV Diastolic Diameter PLAX 4.5 cm 4.2 - 5.9 / 3.9 - 5.3 cm LV Systolic Diameter PLAX 3.5 cm IVS Diastolic Thickness 0.9 cm 0.6 - 1.0 / 0.6 - 0.9 cm LVPW Diastolic Thickness 0.7 cm 0.6 - 1.0 / 0.6 - 0.9 cm LV Relative Wall Thickness 0.4 RV Internal Dim ED PLAX 1.9 cm LA Systolic Diameter LX 3.6 cm 3.0 - 4.0 / 2.7 - 3.8 cm M-MODE Aortic Root Diameter MM 2.5 cm AV Cusp Separation MM 1.8 cm DOPPLER Mitral E Point Velocity 63.7 cm/s Mitral A Point Velocity 62.2 cm/s Mitral E to A Ratio 1.0 TR Peak Velocity 147.0 cm/s TR Peak Gradient 8.6 mmHg FINDINGS Left Ventricle Normal left ventricular size and wall thickness. The left ventricular systolic function is normal with an estimated ejection fraction of 55 %. Left ventricular diastolic function parameters are normal. Right Ventricle Normal right ventricular size and systolic function. Left Atrium The left atrial size is normal. Right Atrium The right atrial size is normal. Atrial Septum Normal atrial septal thickness without atrial level shunting by limited color doppler interrogation. Aorta The aortic root and proximal ascending aorta are normal in size on limited imaging. Mitral Valve Structurally normal mitral valve. No mitral valve stenosis or regurgitation. Aortic Valve Mild thickening of the aortic valve .Trileaflet aortic valve. No aortic valve stenosis or regurgitation. Tricuspid Valve Structurally normal tricuspid valve. No tricuspid valve stenosis or regurgitation. Pulmonary Valve Trivial pulmonary valve regurgitation. Vessels The inferior vena cava is normal in size. Pericardium No pericardial effusion. Gabby Dyer MD, FACC Edited by: [employer] (Electronically Signed) Final Date:15 January 2017 17:24 Amended: 16 January 2017 13:44 JUVENTINO
[2017-01-15] MEDS ORDERED: MORPHINE SULFATE 4 MG/ML INJ IV PUSH PRN (18:00)
[2017-01-15] MEDS ORDERED: LIPI10TA PO (18:10)
[2017-01-15] MEDS: SODIUM CHLOR 0.9% 1000 ML INJ 1,000 ML IV SCH (20:47)
[2017-01-15] MEDS: APIXABAN 5 MG TABLET PO SCH (20:48)
[2017-01-15] MEDS: oxyCODONE/ACETAMINOPHEN 5 MG/325 MG TAB PO PRN (20:49)
[2017-01-15] MEDS ORDERED: ATORVASTATIN 10 MG TAB PO SCH (21:00)
[2017-01-16 00:42] VITALS: BP 123/60; PULSE 86; RESP 18; TEMP 98; O2SAT 99
[2017-01-16] MEDS: oxyCODONE/ACETAMINOPHEN 5 MG/325 MG TAB PO PRN ×2 (04:38→08:54)
[2017-01-16] MEDS: SODIUM CHLOR 0.9% 1000 ML INJ 1,000 ML IV SCH (05:05)
[2017-01-16 06:00] VITALS: BP 128/68; PULSE 66; RESP 18; TEMP 98; O2SAT 97
[2017-01-16] MEDS: INSULIN ASPART SUPPLEMENTAL SCALE SQ SCH (06:07)
[2017-01-16 07:39] VITALS: BP 117/56; PULSE 66; RESP 18; TEMP 97.8; O2SAT 97
[2017-01-16] MEDS: ASPIRIN 81 MG CHEW TAB PO SCH (08:55)
[2017-01-16] MEDS: DOCUSATE SODIUM 50 MG/SENNA 8.6 MG TAB PO SCH (08:55)
[2017-01-16] MEDS: SODIUM CHLORIDE 0.9% FLUSH 10 ML FLUSH IV FLUSH SCH (08:55)
[2017-01-16] MEDS: APIXABAN 5 MG TABLET PO SCH (08:56)
[2017-01-16 10:00] VITALS: PULSE 91
[2017-01-16 11:48] VITALS: BP 131/81; PULSE 71; RESP 18; TEMP 98.7; O2SAT 100
[2017-01-16] MEDS ORDERED: BUTA1CAP PO (12:53)
[2017-01-16] MEDS ORDERED: ACETAMIN 325 MG/BUTALBITAL 50 MG/CAFFEINE 40 MG TAB PO ONE (13:00)
--- NOTE | 2017-01-16 14:16 | HM ---
Date Performed: 01/14/2017 Time Performed: 20:59:00 HOOKUP DATE: 01/14/17 08:59:00 PM Tue ANALYSIS START TIME: 01/14/2017 9:04:00 PM ANALYSIS END TIME: 01/15/2017 8:50:59 PM PATIENT AGE: 56 PATIENT HEIGHT: 67 PATIENT WEIGHT: 220 DRUG LIST: room # F-Pod 66 PATIENT DIAGNOSIS: LEFT SIDED WEAKNESS HEADACHE TEST NARRATIVE: The patient's average heart rate was 84 BPM. Heart rates greater than 120 B PM were noted 2% of the time. No episodes of bradycardia were noted. No pauses exceeding 2.0 sec onds were noted. No ventricular ectopics were noted. No supraventricular ectopics were noted. Multiple episodes of ST depression (defined as -1.0 mm or more) were noted in channel 1. The m aximum depression of -1.6 mm occurred at 04:31:38 PM Wed. No episodes of ST depression (defined as - 1.0 mm or more) were noted in channel 2. No episodes of ST depression (defined as -1.0 mm or more) w ere noted in channel 3. TEST INTERPRETATION: The patient was monitored for 23 hours and 47 minutes. Minimum heart rate was 54, maximum heart rate was 126 bpm and average heart rate was 84 bpm. There were no PVCs or PACs . Conclusions: Unremarkable Holter monitor. Signed by : Aneudy Fuller
--- NOTE | 2017-01-16 14:43 | HHI.DS ---
Discharge Summary Admission Date Jan 14, 2017 at 01:46 Discharge Date: Jan 15, 2017 Admitting Diagnosis left-sided weakness, headache (1) TIA (transient ischemic attack) ICD Code: G45.9 Diagnosis: Principal (2) Left-sided weakness ICD Code: R53.1 Diagnosis: Principal (3) Headache ICD Code: R51 Diagnosis: Principal Procedures None Brief History - From Admission Written by BRIDGET Deshpande acting as scribe for Dr. Millan] on 01/14/17 at 08: 50. 56 y/o female with a history of TIA, CAD, migraines, DVT, and PE presents to the ED with complaints of dizziness, left sided weakness, and headaches. She states symptoms began Friday; she was standing in kitchen felt very dizzy and she felt like she was going to pass out so she went and laid down. Friday she continued to have intermittent symptoms, and then on Friday she started to have left sided weakness. She also gets associated headaches with the dizziness. She denies any numbness to left side, states it just feels dull on the whole side with decreased sensation. Denies any chest pain, sob, fever or chills. CBC/BMP: 01/15/17 1009 01/15/17 1009 Significant Findings Laboratory Tests Test 01/13/17 01/13/17 01/14/17 01/14/17 19:00 22:50 08:33 11:45 Urine Leukocyte Esterase SMALL (NEG) Urine WBC 6 /hpf (0-5) Urine Mucus FEW /lpf (OCC) White Blood Count 3.9 TH/MM3 (4.0-11.0) Lymphocytes (%) (Auto) 44.8 % (9.0-44.0) Potassium Level 3.4 MEQ/L (3.5-5.1) Chloride Level 108 MEQ/L (98-107) Troponin I LESS THAN 0.02 LESS THAN 0.02 LESS THAN 0.02 NG/ML NG/ML NG/ML (0.02-0.05) (0.02-0.05) (0.02-0.05) Activated Partial 23.0 SEC Thromboplast Time (24.3-30.1) Test 01/14/17 01/15/17 19:20 10:09 Hemoglobin A1c 6.3 % (4.3-6.0) Troponin I LESS THAN 0.02 NG/ML (0.02-0.05) White Blood Count 3.3 TH/MM3 (4.0-11.0) Mean Corpuscular Hemoglobin 31.9 % Concent (32.0-36.0) Eosinophils (%) (Auto) 4.1 % (0.0-4.0) Neutrophils # (Auto) 1.5 TH/MM3 (1.8-7.7) Estimat Glomerular Filtration 82 ML/MIN (>89) Rate Random Glucose 127 MG/DL (74-106) Triglycerides Level 157 MG/DL (42-150) Cholesterol Level 237 MG/DL (120-200) LDL Cholesterol 149 MG/DL (0-99) PE at Discharge GENERAL: This is a well-nourished, well-developed patient, in no apparent distress. SKIN: No rashes, ecchymoses or lesions. Cool and dry. HEAD: Atraumatic. Normocephalic. No temporal or scalp tenderness. NECK: Trachea midline. No JVD or lymphadenopathy. Supple, nontender, no meningeal signs. CARDIOVASCULAR: Regular rate and rhythm without murmurs, gallops, or rubs. RESPIRATORY: Clear to auscultation. Breath sounds equal bilaterally. No wheezes , rales, or rhonchi. GASTROINTESTINAL: Abdomen soft, non-tender, nondistended. No hepato-splenomegaly , or palpable masses. No guarding. MUSCULOSKELETAL: Extremities without clubbing, cyanosis, or edema. No joint tenderness, effusion, or edema noted. No calf tenderness. NEUROLOGICAL: Awake and alert. Cranial nerves II through XII intact. Motor and sensory grossly within normal limits. 4 out of 5 muscle strength in LUE and LLE. Decreased sensation on left side. Normal speech. Hospital Course Mrs. Quiroga is admitted with headache and left-sided weakness. CVA workup is negative. Headache has been persisting. Patient does not regularly of headaches at baseline. No structural etiology can be found. Extensive workup included scans of the brain, echocardiogram, and neurological monitoring. All workup has been negative. Patient was discharged was taking extra day as her headaches have not resolved. Today she is provided Fioricet and discharge with some fears that she is at home should her headache persists. Neurology has cleared this patient. Despite headache she is determined to be medically stable for discharge to home. Pt Condition on Discharge: Good Discharge Disposition: Disch w/ Home Health Serv Discharge Time: <= 30 minutes Discharge Instructions DIET: Follow Instructions for: Heart Healthy Diet Activities you can perform: Regular-No Restrictions Follow up Referrals: Neurology - 1 Week with Mark Escoto MD PCP Follow-up - 2-3 Days New Medications: Edapeazzbj-Qdllwcagjfonh-Qcymwtyv (Fioricet) 50-300-40 Mg Cap 1 CAP PO BID PRN HEADACHE #12 Ref 0 CAP Atorvastatin (Lipitor) 10 Mg Tab 10 MG PO HS Cholesterol Management #30 TAB Continued Medications: Apixaban (Eliquis) 5 Mg Tab 5 MG PO HS Blood Clot Prevention #60 Ref 0 TAB Oxycodone-Acetaminophen (Percocet) 5-325 mg Tab 1-2 TAB PO Q6H PRN PAIN Ref 0 TAB Franck Ny MD Jan 16, 2017 14:43
== END 2017-01-16 14:28 | disposition home or self-care (01) ==
LOC: EDSEX → NEPE 15:07 → NEDA 01-14 01:46 → NEPFCDU 01-14 05:35
PROVIDERS: ADMIT Hospitalist; ATTEND Hospitalist
DX: G45.9 Transient cerebral ischemic attack, unspecified (principal); R51 Headache; I25.10 Atherosclerotic heart disease of native coronary artery without angina pectoris; E87.6 Hypokalemia; E78.5 Hyperlipidemia, unspecified; Z86.73 Personal history of transient ischemic attack (TIA), and cerebral infarction without residual deficits; Z79.01 Long term (current) use of anticoagulants; Z86.711 Personal history of pulmonary embolism; Z86.718 Personal history of other venous thrombosis and embolism; Z96.652 Presence of left artificial knee joint; Z88.6 Allergy status to analgesic agent; Z88.8 Allergy status to other drugs, medicaments and biological substances; Z98.890 Other specified postprocedural states; Z96.698 Presence of other orthopedic joint implants
CPT/HCPCS: 70450; 70496; 70498; 70551; 71010; 80048; 80053; 80061; 81001; 82550; 82948; 83036; 84484; 85025; 85610; 85730; 87641; 92610; 93005; 93225; 93226; 93306; 93971; 96361; 96372; 96374; 96375; 96376; 97110; 97116; 97162; 97166; 99285; G0378; G8987; G8988; G8996; G8997; G8998; J1200; J1644; J2060; J2270; J2765; J7030; Q9967